=== PATIENT | female | born 2000 | race Caucasian/White ===

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

== ENCOUNTER 2020-02-17 07:12 | Emergency (ER) | payer MEDICAID ==
[~2020-02-17] VITALS: Ht 147.3 cm; Wt 52.2 kg
[2020-02-17 08:08] LABS: Urine Bacteria MOD /hpf (None Seen); Urine Blood 2+ /uL (Negative); Urine Mucus FEW (None Seen); Urine Specific Gravity 1.023 (1.001-1.035); Urine WBC 5 /hpf (0 - 5)
[2020-02-17 13:40] VITALS: BP 126/80
== END 2020-02-17 14:10 | disposition home or self-care (01) ==
LOC: ER 07:12
DX: N93.9 Abnormal uterine and vaginal bleeding, unspecified (principal); N39.0 Urinary tract infection, site not specified; N88.8 Other specified noninflammatory disorders of cervix uteri
CPT/HCPCS: 36415; 76830; 76856; 81001; 84702

== ENCOUNTER 2020-09-11 13:51 | Observation (INO) | payer MEDICAID ==
[~2020-09-11] VITALS: Ht 144.8 cm; Wt 53.5 kg
== END 2020-09-11 16:36 | disposition home or self-care (01) ==
LOC: OB 13:51 → LDRP 14:45
PROVIDERS: ADMIT Obstetrics & Gynecology; ATTEND Obstetrics & Gynecology
DX: O20.9 Hemorrhage in early pregnancy, unspecified (principal); Z3A.19 19 weeks gestation of pregnancy
CPT/HCPCS: 76805; 81002; G0378

== ENCOUNTER 2021-03-25 09:43 | Emergency (ER) | payer MEDICAID ==
[~2021-03-25] VITALS: Ht 147.3 cm; Wt 47.6 kg
[2021-03-25 10:12] VITALS: BP 130/79
[2021-03-25 10:43] LABS: Urine Bacteria MOD /hpf (None Seen); Urine Blood Negative /uL (Negative); Urine Mucus FEW (None Seen); Urine Specific Gravity 1.036 (1.001-1.035); Urine WBC 5 /hpf (0 - 5)
== END 2021-03-25 10:56 | disposition home or self-care (01) ==
LOC: ER 09:43
DX: N83.201 Unspecified ovarian cyst, right side (principal); N30.00 Acute cystitis without hematuria
CPT/HCPCS: 74176; 81001